=== PATIENT | male | born 1955 | race Two or more races ===

== ENCOUNTER → 2023-06-01 | Outpatient (CLI) | payer OTHER | END | disposition home or self-care (01) | LOC: LAB 15:50 | PROVIDERS: ATTEND Family Medicine | DX: Z12.11 Encounter for screening for malignant neoplasm of colon (principal) | CPT/HCPCS: 82270 ==

== ENCOUNTER 2025-09-16 08:12 | Emergency (ER) | payer OTHER ==
[~2025-09-16] VITALS: Ht 167.6 cm; Wt 80.8 kg
[2025-09-16 08:13] VITALS: TEMP 97.8
--- NOTE | 2025-09-16 09:02 | DVH ---
EXAMINATION: XY R RIB XRAY INDICATION: RIGHT RIB PAIN POST FALL COMPARISON: None TECHNIQUE: Frontal view of the chest and 4 views of the right ribs history FINDINGS: No focal consolidation, pleural effusion or significant pneumothorax. Normal cardiomediastinal silhou ette. No displaced right rib fracture. IMPRESSION: No acute cardiopulmonary disease. No displaced right rib fracture.
--- NOTE | 2025-09-16 09:02 | DVH ---
CLINICAL INDICATION: RIGHT SHOULDER PAIN POST FALL TECHNIQUE: 3 radiographic views of the right shoulder were obtained. Comparison: None FINDINGS/IMPRESSION: There is no evidence of acute fracture or dislocation. The visualized joint space is well maintained. The alignment is anatomical. There is no radiopaque foreign body.
[2025-09-16 09:06] VITALS: BP 187/102; PULSE 75; RESP 18; O2SAT 97
--- NOTE | 2025-09-16 09:08 | ED.PDOC ---
[place]yl[place]. trauma (HPI) HPI Comments 70 year old male presents to the ED with a chief compliant of RT shoulder pain s/p fall onset 3 days. Patient states he tripped over his dog, hit RT shoulder, RT ribs with corner of couch. Since then, patient has been experiencing constant Rt shoulder pain, non-radiating RT rib pain worsens with movement, rates pain 8/10, has not taken pain medication. Patient states BP is usually around 160 systolic when he goes to PCP office. No other symptoms or modifying factors present at this time. Denies fevers chills night sweats nausea vomiting redness around the shoulder Denies Numbness/tingling down the arm Denies changes, shortness of breath Denies chest pain shortness of breath Denies LOC, head injury headache Chief Complaint: Fall Injury Time Seen by MD: 08:50 Reviewed notes: Nurses Notes, Medications, Allergies Allergies: Coded Allergies: NO KNOWN ALLERGIES (Unverified , 09/16/25) Information Source: Patient Mode of Arrival: Ambulatory Severity: Moderate Timing: Days Duration: Since onset Prehospital treatment: None Location: (R) Shoulder, Other Location of laceration: None Mechanism: Fall Past Medical History PAST MEDICAL HISTORY: Denies Surgical History: Denies all surgeries Social History Smoker: Cigarettes Alcohol: Denies ETOH Use Drugs: Denies Drug Use Lives In: Home All Other Systems: Reviewed and Negative (as per HPI) Physical Exam General Appearance: No Apparent Distress, Normal HEENT: Normal ENT Inspection, Pharynx Normal, TMs Normal Neck: Full Range of Motion, Non-Tender, Normal, Normal Inspection Respiratory: Chest Non-Tender, Lungs Clear, No Accessory Muscle Use, No Respiratory Distress, Normal Breath Sounds Cardiovascular: No Edema, No JVD, No Murmur, No Gallop, Normal Peripheral Pulses, Regular Rate/Rhythm Breast Exam: Deferred Gastrointestinal: No Organomegaly, Non Tender, No Pulsatile Mass, Normal Bowel Sounds, Soft Genitalia: Deferred Pelvic: Deferred Rectal: Deferred Extremities: No calf tenderness, Normal capillary refill, Normal inspection, Normal range of motion, Non-tender, No pedal edema Musculoskeletal : Apperance: Normal Neurologic: Alert, solar lab technician II-XII nml as Tested, No Motor Deficits, Normal Affect, Normal Mood, No Sensory Deficits Cerebellar Function: Normal Reflexes: Normal Skin: Other (10 cm contusion to RT chest wall, no crepatous ) Lymphatic: No Adenopathy Was a procedure done? Was a procedure done?: No Images 1 - contussion. no crepitus. Differential Diagnosis Multiple Trauma: Other X-Ray, Labs, Meds, VS Vital Signs Date Time Temp Pulse Resp B/P (MAP) Pulse Ox O2 Delivery O2 Flow Rate FiO2 09/16/25 09:06 75 18 187/102 (130) 97 09/16/25 08:13 97.8 79 18 204/105 97 97.8 X-Ray, Labs, Meds, VS Comment 70 year old male presents to the ED with a chief compliant of RT shoulder pain s/p fall onset 3 days. Patient arrives alert and oriented, ABC's intact, afebrile, vital signs stable, saturating well in room air Diagnostic imaging ordered by me and results interpreted by radiology : Xy R shoulder 2+ view: Xy R rib: Findings showed no acute findings on the x-rays. History and examination consistent w/ sprain X-rays ordered, read by radiologist and reviewed by me. Imaging shows no acute findings There are no signs of arterial or nerve damage Take IBU or OTC Tylenol w/ food as needed for pain Recommended heat therapy Reviewed RICE management Avoid heavy lifting or strenuous activity Recommended range of motion exercises and limit heavy activity for 1 week If no improvement advised patient to return to the emergency department for follow-up. Discussed possibility of a occult fracture Inform patient of their elevated blood pressure Today discussed importance of regular exercise Sodium restriction DASH diet Limit or illuminate alcohol intake Patient verbalized understanding Follow-up with PCP Additional MDM Review of External, Non-ED records: External records reviewed. Discussion with independent historian (EMS, family) history obtained from the patient/parents (if applicable) at bedside Chronic conditions affecting care: None Social determinants of health affecting care: None On reevaluation, patient had symptomatic improvement. Patient is stable for discharge at this time. External notes reviewed. Test results and diagnostic imaging interpreted. All diagnostic findings, discharge care, education and instructions provided Follow-up with PCP in 2 to 3 days Patient verbalized understanding and agreed to treatment plan Vital signs stable, afebrile, no acute distress noted Patient ambulatory with strong steady gait Advised to return precautions for any new or worsening symptoms, return to ER immediately for re-evaluation Patient is aware that the purpose of this visit was for an acute medical emergency requiring emergent stabilization. Chronic conditions, including malignancies have not been ruled out. Patient is instructed to follow up with PCP as directed and discharge instructions for continued care and workup. If unable to arrange follow-up, patient is to return to the emergency department for reassessment. Patient (parent or legal guardian if applicable) was given verbal and written discharge instructions and acknowledges understanding. Time of 1ST Reevaluation: 09:20 Reevaluation 1ST: Improved Patient Education/Counseling: Diagnosis, Treatment Family Education/Counseling: No Family Present Departure 1 Departure Time of Disposition: 09:21 Impression: Primary Impression: Rib pain on right side Additional Impressions: Shoulder pain, right Qualified Codes: M25.511 - Pain in right shoulder Fall Qualified Codes: W19.XXXA - Unspecified fall, initial encounter Disposition: HOME / SELF CARE / HOMELESS Condition: Fair e-Prescriptions Lidocaine (LIDODERM 5% TOPICAL PATCH) 1 Patch Ph 1 PATCH TOP DAILY for 30 Days, #30 PATCH 0 Refills Prov: TSERING COFFEY NP 09/16/25 Discharged With: Self Critical Care Note Critical Care Time?: No Stability Stability form required: No Heart Score Heart Score: Heart Score Response (Comments) Value History N/A 0 EKG N/A 0 Age N/A 0 Risk Factors N/A 0 Troponin N/A 0 Total 0 I personally scribed for TSERING COFFEY NP ([email or web address]) on 09/16/25 at 09:08. Electronically submitted by Radha Zamora ([email or web address]). TSERING COFFEY NP Sep 16, 2025 09:08
[2025-09-16] MEDS ORDERED: LIDO5DIS21 TOP (09:23)
== END 2025-09-16 10:38 | disposition home or self-care (01) ==
LOC: ER 08:12
DX: M25.511 Pain in right shoulder (principal); R07.89 Other chest pain; F17.210 Nicotine dependence, cigarettes, uncomplicated; W22.03XA Walked into furniture, initial encounter; Y93.89 Activity, other specified; Y92.89 Other specified places as the place of occurrence of the external cause; Y99.8 Other external cause status
CPT/HCPCS: 71101; 73030